=== PATIENT | male | born 1930 | race Caucasian/White ===

== ENCOUNTER 2020-06-05 06:12 | Emergency (ER) | payer OTHER ==
[~2020-06-05] VITALS: Ht 180.3 cm; Wt 58.1 kg
[~2020-06-05 06:12] MED LIST: ABAT250V; ALBU3IS INH; ALBU4; ALBU90OI; ALBU90OI INH; ALBU90OI61 INH; ALBUIS INH; AMLO5 PO; BUDE6HFA INH; CETI5 PO; DOCU100 PO; Flonase 0.05% N16 GM; LEVO750 PO; LISHYD2025 PO; LORA1 PO; MONT10T PO; MORP20L PO; OSTERA TABLET1 EACH; PRED20; PRED20 PO; SPIRIVA RESPIMAT4 GM; SULTRIDS PO; TIOT18 INH; ZESTORETIC 20-121 EA PO
[2020-06-05] MEDS ORDERED: POTCHL20ER PO (06:48)
[2020-06-05] MEDS ORDERED: METOPROLOL TART25 MG PO (06:48)
[2020-06-05] MEDS ORDERED: FLUTICASONE-SA1 EAC9 INH (06:48)
[2020-06-05 06:55] LABS: BASOPHILS ABSOLUTE AUTO 0.04 K/mm3 (0.00-0.23); BASOPHILS PERCENT AUTO 1 % (0-2); EOSINOPHILS ABSOLUTE AUTO 0.15 K/mm3 (0.00-0.68); EOSINOPHILS PERCENT AUTO 2 % (0-6); Hematocrit 39.1 % (37.0-53.0); Hemoglobin 12.3 g/dL (13.5-17.5); IMMATURE GRAN ABSOLUTE AUTO 0.01 K/mm3 (0.00-0.10); IMMATURE GRAN PERCENT AUTO 0 % (0-1); LYMPHOCYTES ABSOLUTE AUTO 0.62 K/mm3 (0.84-5.20); LYMPHOCYTES PERCENT AUTO 8 % (21-46); MONOCYTES ABSOLUTE AUTO 0.73 K/mm3 (0.16-1.47); MONOCYTES PERCENT AUTO 10 % (4-13); Mean Corpuscular HGB 30.4 pg (26.0-34.0); Mean Corpuscular HGB Conc 31.5 g/dL (31.5-36.5); Mean Corpuscular Volume 97 fL (80-100); Mean Platelet Volume 9.3 fL (9.1-12.4); NEUTROPHILS ABSOLUTE AUTO 5.84 K/mm3 (1.96-9.15); NEUTROPHILS PERCENT AUTO 79 % (41-73); Platelet Count 221 K/mm3 (150-400); RDW Coefficient Variation 12.4 % (11.7-14.2); RDW Standard Deviation 44.4 fL (35.1-46.3); Red Blood Cell Count 4.05 M/mm3 (4.30-5.90); White Blood Cell Count 7.39 K/mm3 (4.00-11.30)
[2020-06-05 07:02] LABS: PCO2 Arterial 58.4 mmHg (35-45); PO2 Arterial 121 mmHg (80-100)
[2020-06-05 07:03] LABS: pH Blood Arterial 7.27 (7.35-7.45)
[2020-06-05 07:20] LABS: Alanine Aminotransfer (ALT/SGP 21 U/L (12-78); Albumin, Blood 3.7 g/dL (3.4-5.0); Alk Phos 68 U/L (50-136); Anion Gap 10 mmol/L (6-16); Aspartate Aminotrans (AST/SGOT 28 U/L (12-37); Bilirubin, Total 0.9 mg/dL (0.1-1.0); Blood Urea Nitrogen 28 mg/dL (8-24); Bun/Creatinine Ratio 24.1 (12.0-20.0); CO2, Blood 26 mmol/L (21-32); Calcium, Blood 9.2 mg/dL (8.5-10.1); Chloride, Blood 98 mmol/L (98-108); Creatinine, Blood 1.16 mg/dL (0.60-1.20); Globulin, Blood 3.8 g/dL (2.2-4.0); Glomerular Filtration Rate >60 (60-); Glucose, Blood 62 mg/dL (70-99); Sodium, Blood 134 mmol/L (136-145); Total Protein, Blood 7.5 g/dL (6.4-8.2)
[2020-06-05] MEDS ORDERED: LEVO750 PO (10:50)
[2020-06-05] MEDS ORDERED: PRED20 PO (10:50)
== END 2020-06-05 14:00 | disposition home or self-care (01) ==
LOC: ER 06:12
PROVIDERS: Emergency Medicine
DX: J96.02 Acute respiratory failure with hypercapnia (principal); Z79.899 Other long term (current) drug therapy; Z79.51 Long term (current) use of inhaled steroids; Z88.0 Allergy status to penicillin; Z88.5 Allergy status to narcotic agent
CPT/HCPCS: 36415; 36600; 71045; 80053; 82803; 83605; 85025; 87040; 93005; 93010; 96374; 96375; 99285-25; A9270; J0780; J2930